=== PATIENT | female | born 1950 | race Caucasian/White ===

== ENCOUNTER 2018-08-05 13:19 | Emergency (ER) | payer MEDICARE ==
[2018-08-05] MEDS ORDERED: Meclizine TAB* 12.5 MG PO ONE (13:32)
[2018-08-05] MEDS ORDERED: Ondansetron INJ* 2 MG/ML VIAL IV ONE (13:32)
--- NOTE | 2018-08-05 13:38 | ED ---
Neurological HPI - HPI Summary HPI Summary: This patient is a 68 year old F presenting to [facility] accompanied by her with a chief complaint of dizziness since last night. Pt states she was sleeping outside last night, she got up to urinate, and experienced dizziness. She still tried to use the bathroom and states she had an unsteady gait, she went back to bed, and when she woke up in the morning she had the same sx. She then had a BM in the grass outside and went back to sleep, when she woke up she felt better but was still experiencing vertigo sx and a feeling of near syncope. The patient rates the pain 0/10 in severity. Patient reports nausea, near syncope, and numbness in fingers of LUE. - History of Current Complaint Chief Complaint: EDDizziness Stated Complaint: STROKE LIKE SYMPTOMS Time Seen by Provider: 08/05/18 13:25 Hx Obtained From: Patient Onset/Duration: Started hours ago, Still Present Timing: Constant Onset Severity: Mild Current Severity: Mild Pain Intensity: 0 Pain Scale Used: 0-10 Numeric Character: Head Spinning, Room Spinning Syncope Context: Loss of Consciousness: No Associated Signs and Symptoms: Positive: Dizziness, Nausea/Vomiting. Negative: Loss of Consciousness - Allergy/Home Medications Allergies/Adverse Reactions: Allergies Allergy/AdvReac Type Severity Reaction Status Date / Time No Known Allergies Allergy Verified 08/05/18 13:33 PMH/Surg Hx/FS Hx/Imm Hx Endocrine/Hematology History: Denies: Hx Diabetes, Hx Thyroid Disease Cardiovascular History: Denies: Hx Cardiac Arrest, Hx Coronary Artery Disease, Hx Deep Vein Thrombosis, Hx Hypotension, Hx Hypertension, Hx Peripheral Vascular Disease, Hx Valvular Heart Disease Respiratory History: Denies: Hx Chronic Obstructive Pulmonary Disease (COPD), Hx Cystic Fibrosis, Hx Lung Cancer, Hx Pneumonia GI History: Denies: Hx Gall Bladder Disease, Hx Gastroesophageal Reflux Disease History: Denies: Hx Acute Renal Failure Neurological History: Denies: Hx CVA, Hx Dementia, Hx Developmental Delay, Hx Migraine Infectious Disease History: No Infectious Disease History: Denies: Traveled Outside the [place] in Last 30 Days - Family History Known Family History: Positive: Other - [place] father and mother Negative: Cardiac Disease, Hypertension, Diabetes, Renal Disease, Respiratory Disease, Seizure Disorder - Social History Alcohol Use: None Hx Substance Use: Yes Substance Use Type: Reports: Marijuana Hx Tobacco Use: No Smoking Status (MU): Never Smoked Tobacco Review of Systems Positive: Nausea Neurological: Other - dizzines Positive: Numbness, Syncope - near All Other Systems Reviewed And Are Negative: Yes Physical Exam - Summary Physical Exam Summary: VITAL SIGNS: Reviewed. GENERAL: Patient is a well-developed and nourished FEMALE who is lying comfortable in the stretcher. Patient is not in any acute respiratory distress. HEAD AND FACE: No signs of trauma. No ecchymosis, hematomas or skull depressions. No sinus tenderness. EYES: PERRLA, EOMI x 2, No injected conjunctiva, no nystagmus. No photophobia. EARS: Hearing grossly intact. Ear canals and tympanic membranes are within normal limits. MOUTH: Oropharynx within normal limits. NECK: Supple, trachea is midline, no adenopathy, no JVD, no carotid bruit, no c- spine tenderness, neck with full ROM. No meningeal signs, no Kernig's or brudzinskis signs. CHEST: Symmetric, no tenderness at palpation LUNGS: Clear to auscultation bilaterally. No wheezing or crackles. CVS: Regular rate and rhythm, S1 and S2 present, no murmurs or gallops appreciated. ABDOMEN: Soft, non-tender. No signs of distention. No rebound no guarding, and no masses palpated. Bowel sounds are normal. EXTREMITIES: FROM in all major joints, no edema, no cyanosis or clubbing. NEURO: Alert and oriented x 3. No acute neurological deficits. Speech is normal and follows commands. SKIN: Dry and warm GCS: 15 Vital Signs On Initial Exam: Initial Vitals Temp Pulse Resp BP Pulse Ox 97 F 65 16 91/61 100 08/05/18 13:20 08/05/18 13:20 08/05/18 13:20 08/05/18 13:20 08/05/18 13:20 Diagnostics - Vital Signs Vital Signs Temp Pulse Resp BP Pulse Ox 08/05/18 13:20 97 F 65 16 91/61 100 - Laboratory Result Diagrams: 08/05/18 13:52 08/05/18 13:52 Lab Statement: Any lab studies that have been ordered have been reviewed, and results considered in the medical decision making process. - CT CT Brain CT Interpretation Completed By: Radiologist - NO ACUTE INTRACRANIAL PATHOLOGY. ED physician has reviewed this radiology report. NIH Scale - NIH Scale Level of Consciousness: Alert/Keenly Responsive Ask Patient the Month and His/Her Age: Both Correct Ask Pt to Open/Close Eyes and Computer Systems Engineer/Release Non-Paretic Hand: Both Correctly Best Gaze (Only Horizontal Eye Movement): Normal Visual Field Testing: No Visual Loss Facial Paresis-Pt to Smile & Close Eyes or Grimace Symmetry: Normal/Symmetrical Motor Function - Right Arm: No Drift-Holds 10 Seconds Motor Function - Left Arm: No Drift-Holds 10 Seconds Motor Function - Right Leg: No Drift-Holds 10 Seconds Motor Function - Left Leg: No Drift-Holds 10 Seconds Limb Ataxia-Must be out of Proportion to Weakness Present: Absent Sensory (Use Pinprick to Test Arms/Legs/Trunk/Face): Normal Best Language (Describe Picture, Name Items): No Aphasia Dysarthria (Read Several Words): Normal Extinction and Inattention: No Abnormality Total Score: 0 Course/Dx - Course Assessment/Plan: This patient is a 68-year-old female who presents to the emergency department with a chief complaint of having dizziness and some numbness in the left upper extremity. She reports the symptoms started yesterday and improved. However 2 hours prior to arrival the symptoms return. Patient reports that the room is spinning and occasionally she feels that she is going to pass out. He denies any headache but positive nausea. Blood test results without any significant abnormality except for glucose of 140. Head CT impression shows no acute intracranial pathology. In the ED course the patient was given IV fluids, patient was given Zofran for nausea and vomiting and meclizine for vertigo. I ambulated the patient myself and the patient doesnt have any ataxia. Patient is able to ambulate without any ataxia. Since the patient is feeling better without any symptoms I believe that the symptoms are secondary to vertigo. I discussed all the findings and test results with the patient. Patient was instructed to return to the emergency room immediately if any of the symptoms return or worsens. Plan of care was discussed with the patient and understands and agrees. All questions were answered at patient satisfaction. There were no further complaints or concerns. Lung exam before discharge: CTA B/L. Good air exchange. No wheezing or crackles heard. CVS: S1 and S2 present. No murmurs appreciated. Patient is alert and oriented x 3. Patient is hemodynamically stable. Patient will be discharged home with follow up PCP in the next 2-3 days - Diagnoses Provider Diagnoses: Vertigo Discharge - Sign-Out/Discharge Documenting (check all that apply): Patient Departure - Discharge Plan Condition: Stable Disposition: HOME Prescriptions: RX: Meclizine TAB* [Antivert 12.5 TAB*] 25 mg PO TID PRN #30 tab PRN Reason: Vertigo Patient Education Materials: Vertigo (ED) Referrals: Shira Fam MD [Medical Doctor] - 2 Days Additional Instructions: RETURN TO THE EMERGENCY DEPARTMENT FOR CHANGING OR WORSENING SYMPTOMS. FOLLOW UP WITH PCP IN 1-2 DAYS. - Billing Disposition and Condition Condition: STABLE Disposition: Home - Attestation Statements Document Initiated by Scribe: Yes Documenting Scribe: Chas Gutierrez Provider For Whom Len is Documenting (Include Credential): Jorge Bourgeois MD Scribe Attestation: Chas Brandon , scribed for Jorge Bourgeois MD on 08/05/18 at 1614. Scribe Documentation Reviewed: Yes Provider Attestation: The documentation as recorded by the Chas dotson accurately reflects the service I personally performed and the decisions made by Jorge rae MD
--- NOTE | 2018-08-05 13:57 | RAD ---
HISTORY: Numbness and weakness COMPARISONS: None TECHNIQUE: Multiple contiguous axial CT scans were obtained of the head without intravenous contrast. FINDINGS: HEMORRHAGE/INFARCT: There is no hemorrhage or acute infarct. MASSES/SHIFT: There is no mass or shift. EXTRA-AXIAL SPACES: There are no extra-axial fluid collections. SULCI AND VENTRICLES: The sulci and ventricles are normal in size and position for the patient's stated age. CEREBRUM: There are no focal parenchymal abnormalities. BRAINSTEM: There are no focal parenchymal abnormalities. CEREBELLUM: There are no focal parenchymal abnormalities. VESSELS: The vessels are grossly normal. PARANASAL SINUSES: The paranasal sinuses are clear. ORBITS: The orbits are unremarkable. BONES AND SOFT TISSUE: No bone or soft tissue abnormalities are noted. OTHER: None IMPRESSION: NO ACUTE INTRACRANIAL PATHOLOGY.
[2018-08-05 14:18] LABS: ABS Basophils 0.1 10^3/ul (0-0.2); ABS Eosinophils 0 10^3/ul (0-0.6); ABS Lymphocytes 1.2 10^3/ul (1.0-4.8); ABS Monocytes 0.3 10^3/ul (0-0.8); ABS Neutrophils 6.7 10^3/ul (1.5-7.7); ABS Nucleated RBC 0 10^3/ul; Eosinophil % 0.1 % (0-6); Hematocrit 39 % (35-47); Hemoglobin 13.2 g/dl (12.0-16.0); Mean Corpuscular HGB Conc 33 g/dl (31-36); Mean Corpuscular Hemoglobin 29 pg (27-31); Mean Corpuscular Volume 86 fL (80-97); Mean Platelet Volume 8.2 um3 (7.4-10.4); Nucleated Red Blood Cells % 0.1; Platelet Count 223 10^3/ul (150-450); Red Blood Count 4.55 10^6/ul (4.00-5.40); Red Cell Distribution Width 14 % (10.5-15); White Blood Count 8.3 10^3/ul (3.5-10.8)
[2018-08-05 14:20] LABS: INR 0.92 (0.77-1.02)
[2018-08-05 15:00] LABS: EGFR Non-African American 74.3 (>60)
[2018-08-05 16:42] VITALS: BP 153/81
== END 2018-08-05 16:41 | disposition home or self-care (01) ==
LOC: ED 13:19
DX: R42 Dizziness and giddiness (principal)
CPT/HCPCS: 36415; 70450; 80053; 80061; 80320; 83605; 84484; 85025; 85610; 85730; 86850; 86900; 86901; 87040; 99284; A9270-GY; G0480; J2405

== ENCOUNTER 2023-08-14 15:57 | Inpatient (IN) ==
[2023-08-14 16:52] LABS: ABS Basophils 0.1 10^3/uL (0.0-0.1); ABS Eosinophils 0.1 10^3/uL (0.0-0.5); ABS Lymphocytes 0.9 10^3/uL (1.0-4.8); ABS Monocytes 0.7 10^3/uL (0.0-0.9); ABS Neutrophils 7.2 10^3/uL (1.5-7.6); ABS Nucleated RBC 0.01 10^3/ul; Eosinophil % 0.7 %; Hematocrit 34.1 % (35-45); Hemoglobin 11.7 g/dL (11.5-14.3); Lymphocyte % 10.3 %; Mean Corpuscular Hemoglobin 29.2 pg (27-33); Mean Corpuscular Hgb Conc 34.3 g/dL (31-36); Mean Corpuscular Volume 85.1 fL (80-97); Nucleated Red Blood Cells % 0.1 /100 WBC (0.0-0.4); Platelet Count 203 10^3/uL (150-450); Red Cell Distribution Width 14.5 % (12-17)
[2023-08-14 17:02] LABS: Calcium 9.8 mg/dL (8.6-10.3); Potassium 5.7 mmol/L (3.5-5.0); Total Bilirubin 0.6 mg/dL (0.2-1.0)
[2023-08-14 17:09] LABS: Albumin/Globulin Ratio 1.1 (1-3); C Reactive Protein 26.9 mg/L (<8.01); Creatinine, Serum 10.28 mg/dL (0.51-0.95); Globulin 3.7 g/dL (2-4); Total Protein 7.7 g/dL (6.4-8.9); eGFR CKD-EPI 3.6 (>60)
[2023-08-14] MEDS ORDERED: NS 0.9% 1000 ml BAG 1,000 ML IV ONE (17:34)
[2023-08-14 18:31] LABS: High Sensitivity Troponin 1 Hr 22 pg/mL (<15)
[2023-08-14 19:24] LABS: Magnesium 2.5 mg/dL (1.9-2.7)
[2023-08-14 21:06] LABS: Calcium 8.3 mg/dL (8.6-10.3); Potassium 5.1 mmol/L (3.5-5.0)
[2023-08-14 21:11] LABS: Creatinine, Serum 9.84 mg/dL (0.51-0.95); eGFR CKD-EPI 3.8 (>60)
[2023-08-14] MEDS ORDERED: Famotidine IV 10 MG/ML 2 ml VIAL (20 mg) IV SLOW PU ONE (21:58)
[2023-08-14] MEDS: Enoxaparin 30 MG/0.3 ML SYR SUBCUT SCH (22:24)
[2023-08-14] MEDS ORDERED: Ondansetron 4 mg VIAL 2 MG/ML 2 ml VIAL IV ONE (22:28)
[2023-08-14] MEDS ORDERED: Acetaminophen IV 1 GM/100ML 1,000 MG/100 ML BAG IV ONE (22:29)
[2023-08-15] MEDS: Enoxaparin 30 MG/0.3 ML SYR SUBCUT SCH (00:03)
[2023-08-15 01:45] LABS: Urine Appearance Cloudy; Urine Bilirubin Negative (Negative); Urine Blood 1+ (Negative); Urine Color Straw; Urine Glucose Negative (Negative); Urine Ketones Trace (Negative); Urine Nitrite Negative (Negative); Urine Protein Negative (Negative); Urine Specific Gravity 1.005 (1.002-1.030); Urine Urobilinogen Negative (Negative)
[2023-08-15 02:06] LABS: Urine Bacteria Absent (Absent); Urine Red Blood Cell Trace(0-2/hpf) (Absent); Urine Squamous Epithelial Cell Present (Absent); Urine White Blood Cell 3+(>20/hpf) (Absent)
[2023-08-15] MEDS ORDERED: NS 0.9% 1000 ml BAG 1,000 ML IV ONE (05:04)
[2023-08-15] MEDS ORDERED: Acetaminophen IV 1 GM/100ML 1,000 MG/100 ML BAG IV PRN (05:05)
[2023-08-15] MEDS: Ondansetron 4 mg VIAL 2 MG/ML 2 ml VIAL IV PRN ×2 (05:17→15:02)
[2023-08-15 06:41] LABS: ABS Basophils 0.1 10^3/uL (0.0-0.1); ABS Lymphocytes 0.5 10^3/uL (1.0-4.8); ABS Monocytes 0.5 10^3/uL (0.0-0.9); ABS Neutrophils 8.1 10^3/uL (1.5-7.6); ABS Nucleated RBC 0.01 10^3/ul; Eosinophil % 0.1 %; Hematocrit 30.6 % (35-45); Hemoglobin 10.5 g/dL (11.5-14.3); Lymphocyte % 5.7 %; Mean Corpuscular Hemoglobin 29.3 pg (27-33); Mean Corpuscular Hgb Conc 34.3 g/dL (31-36); Mean Corpuscular Volume 85.4 fL (80-97); Mean Platelet Volume 9.3 fL (7.5-11.2); Nucleated Red Blood Cells % 0.1 /100 WBC (0.0-0.4); Platelet Count 191 10^3/uL (150-450); Red Blood Count 3.58 10^6/uL (3.63-4.92); Red Cell Distribution Width 14.3 % (12-17); White Blood Count 9.2 10^3/uL (3.8-11.8)
[2023-08-15 06:55] LABS: Albumin 3.8 g/dL (3.2-5.2); Albumin/Globulin Ratio 1.2 (1-3); Calcium 9.6 mg/dL (8.6-10.3); Creatinine, Serum 10.22 mg/dL (0.51-0.95); Globulin 3.3 g/dL (2-4); Total Bilirubin 0.6 mg/dL (0.2-1.0); Total Protein 7.1 g/dL (6.4-8.9); eGFR CKD-EPI 3.6 (>60)
[2023-08-15 06:59] LABS: Potassium 6.8 mmol/L (3.5-5.0)
[2023-08-15] MEDS ORDERED: SODIUM ZIRCONIUM CYCLOSILICATE 10 GM PACKET PO ONE (07:39)
[2023-08-15] MEDS ORDERED: Dextrose 50% Syringe 50 ml 25 GM/50 ML SYRINGE IV PUSH PRN ×2 (07:39→08:23)
[2023-08-15] MEDS ORDERED: Sodium Polystyrene ORAL.SUSP 15 GM/60 ML BTL PO SCH (09:00)
[2023-08-15] MEDS ORDERED: Dextrose 50% Syringe 50 ml 25 GM/50 ML SYRINGE IV PUSH ONE (09:23)
[2023-08-15 10:07] LABS: Calcium 9.1 mg/dL (8.6-10.3); Potassium 5.2 mmol/L (3.5-5.0)
[2023-08-15 10:13] LABS: Creatinine, Serum 9.47 mg/dL (0.51-0.95)
[2023-08-15 10:55] LABS: INR 1.09 (0.83-1.13)
[2023-08-15 13:34] LABS: Calcium 9.2 mg/dL (8.6-10.3); Potassium 4.1 mmol/L (3.5-5.0)
[2023-08-15 13:40] LABS: Creatinine, Serum 9.04 mg/dL (0.51-0.95); eGFR CKD-EPI 4.2 (>60)
[2023-08-15] MEDS ORDERED: Lidocaine 1% VIAL 10 MG/ML 30 ML VIAL INJ ONE (13:52)
[2023-08-15] MEDS ORDERED: Albumin Human 25% 25 GM/100 ML BTL IV PRN (14:38)
[2023-08-15] MEDS ORDERED: NS 0.9% 1000 ml BAG 200 ML IV PRN (14:38)
[2023-08-15] MEDS ORDERED: NS 0.9% 1000 ml BAG 100 ML IV PRN (14:38)
[2023-08-15] MEDS: Heparin 1,000 UNIT/ML 10 ml (10,000 UNITS) CATHLAB/DIALYSIS DIALYSIS PRN ×4 (15:35→18:50)
[2023-08-15 15:58] LABS: Hepatitis B Surface Ab Not Immune (Immune)
[2023-08-15 16:49] LABS: Hepatitis B Surface Antigen Nonreactive (Nonreactive)
[2023-08-16 06:33] LABS: ABS Basophils 0.1 10^3/uL (0.0-0.1); ABS Eosinophils 0.1 10^3/uL (0.0-0.5); ABS Monocytes 0.8 10^3/uL (0.0-0.9); ABS Neutrophils 5.8 10^3/uL (1.5-7.6); Eosinophil % 1.3 %; Hematocrit 29.7 % (35-45); Hemoglobin 10.3 g/dL (11.5-14.3); Lymphocyte % 12.8 %; Mean Corpuscular Hemoglobin 29.2 pg (27-33); Mean Corpuscular Hgb Conc 34.6 g/dL (31-36); Mean Corpuscular Volume 84.2 fL (80-97); Platelet Count 180 10^3/uL (150-450); Red Blood Count 3.53 10^6/uL (3.63-4.92); Red Cell Distribution Width 14.4 % (12-17); White Blood Count 7.8 10^3/uL (3.8-11.8)
[2023-08-16 06:35] LABS: INR 1.16 (0.83-1.13)
[2023-08-16 06:48] LABS: Calcium 9.4 mg/dL (8.6-10.3); Creatinine, Serum 5.74 mg/dL (0.51-0.95); Phosphorus 4.5 mg/dL (2.5-5.0); Potassium 3.9 mmol/L (3.5-5.0); eGFR CKD-EPI 7.3 (>60)
[2023-08-16] MEDS ORDERED: fentaNYL 100 mcg/2 ml 50 MCG/ML VIAL ONE (09:49)
[2023-08-16] MEDS ORDERED: Midazolam 2 mg/2 ml VIAL 1 mg/ml 2 ml VIAL (2 mg) ONE (09:49)
[2023-08-16] MEDS: cefTRIAXone 1 gm/50 mL D5W 1 GM/50 ML BAG IV SCH (10:05)
[2023-08-16] MEDS ORDERED: fentaNYL 100 mcg/2 ml 50 MCG/ML VIAL IV SLOW PU ONE (10:41)
[2023-08-16] MEDS ORDERED: Midazolam 10 mg/10 ml VIAL 1 mg/ml 10 ml VIAL (10 mg) IV SLOW PU ONE (10:41)
[2023-08-16] MEDS ORDERED: Flumazenil 0.5 mg/5 ml 0.1 MG/ML 5 ml VIAL IV PRN (10:41)
[2023-08-16] MEDS ORDERED: Naloxone 0.4 mg VIAL 0.4 mg/ml 1 ml VIAL IV PUSH PRN (10:41)
[2023-08-16] MEDS: Lactated Ringers 1000 ml BAG 1,000 ML IV SCH (15:33)
[2023-08-16] MEDS: Enoxaparin 30 MG/0.3 ML SYR SUBCUT SCH (18:32)
[2023-08-17] MEDS: Lactated Ringers 1000 ml BAG 1,000 ML IV SCH (00:19)
[2023-08-17 06:07] LABS: ABS Basophils 0.1 10^3/uL (0.0-0.1); ABS Eosinophils 0.1 10^3/uL (0.0-0.5); ABS Lymphocytes 1.1 10^3/uL (1.0-4.8); ABS Monocytes 0.9 10^3/uL (0.0-0.9); ABS Neutrophils 4.6 10^3/uL (1.5-7.6); Hematocrit 30.1 % (35-45); Hemoglobin 10.3 g/dL (11.5-14.3); Lymphocyte % 15.7 %; Mean Corpuscular Hgb Conc 34.2 g/dL (31-36); Mean Corpuscular Volume 84.8 fL (80-97); Mean Platelet Volume 8.9 fL (7.5-11.2); Nucleated Red Blood Cells % 0.1 /100 WBC (0.0-0.4); Platelet Count 181 10^3/uL (150-450); Red Blood Count 3.55 10^6/uL (3.63-4.92); Red Cell Distribution Width 14.7 % (12-17); White Blood Count 6.8 10^3/uL (3.8-11.8)
[2023-08-17 06:19] LABS: INR 1.13 (0.83-1.13)
[2023-08-17 06:24] LABS: Creatinine, Serum 3.56 mg/dL (0.51-0.95); Magnesium 1.7 mg/dL (1.9-2.7); eGFR CKD-EPI 12.9 (>60)
[2023-08-17] MEDS ORDERED: Magnesium Sulfate IV 1GM/100ML 1 GM/100 ML BAG IV ONE (07:08)
[2023-08-17] MEDS ORDERED: Magnesium Sulfate 2 gm BAG 2 GM/50 ML BAG IVPB ONE (08:18)
[2023-08-17] MEDS: cefTRIAXone 1 gm/50 mL D5W 1 GM/50 ML BAG IV SCH (08:42)
[2023-08-17] MEDS: Enoxaparin 30 MG/0.3 ML SYR SUBCUT SCH (18:44)
[2023-08-18 05:41] LABS: ABS Basophils 0.1 10^3/uL (0.0-0.1); ABS Eosinophils 0.2 10^3/uL (0.0-0.5); ABS Monocytes 0.7 10^3/uL (0.0-0.9); ABS Neutrophils 4.7 10^3/uL (1.5-7.6); Eosinophil % 2.5 %; Hematocrit 29.3 % (35-45); Hemoglobin 10.1 g/dL (11.5-14.3); Mean Corpuscular Hemoglobin 29.2 pg (27-33); Mean Corpuscular Hgb Conc 34.4 g/dL (31-36); Mean Corpuscular Volume 84.8 fL (80-97); Mean Platelet Volume 9.1 fL (7.5-11.2); Platelet Count 184 10^3/uL (150-450); Red Blood Count 3.46 10^6/uL (3.63-4.92); Red Cell Distribution Width 14.6 % (12-17); White Blood Count 6.8 10^3/uL (3.8-11.8)
[2023-08-18 06:17] LABS: Creatinine, Serum 2.66 mg/dL (0.51-0.95); Potassium 4.3 mmol/L (3.5-5.0)
[2023-08-18 06:18] LABS: Calcium 9.5 mg/dL (8.6-10.3); Magnesium 2.4 mg/dL (1.9-2.7); eGFR CKD-EPI 18.3 (>60)
[2023-08-18] MEDS: cefTRIAXone 1 gm/50 mL D5W 1 GM/50 ML BAG IV SCH (13:07)
[2023-08-18 16:55] VITALS: BP 142/74
== END 2023-08-18 18:15 | disposition home or self-care (01) | DRG 744 ==
LOC: ED 15:57 → SUATTDRO 19:04 → EDHOLD 19:04 → MEDTELE 21:19
PROVIDERS: ADMIT Internal Medicine; ATTEND Internal Medicine